=== PATIENT | male | born 1965 | race Two or more races ===

== ENCOUNTER 2017-05-05 17:51 | Emergency (ER) | payer BC ==
[~2017-05-05] VITALS: Ht 182.9 cm; Wt 113.4 kg
[2017-05-05 17:55] VITALS: Ht 182.9 cm; Wt 113.4 kg
[2017-05-06 00:54] VITALS: BP 137/92
== END 2017-05-06 01:30 | disposition home or self-care (01) ==
LOC: ED 17:51
DX: M54.9 Dorsalgia, unspecified (principal); S80.12XA Contusion of left lower leg, initial encounter; I10 Essential (primary) hypertension; V43.52XA Car driver injured in collision with other type car in traffic accident, initial encounter; Y93.I9 Activity, other involving external motion; Y92.411 Interstate highway as the place of occurrence of the external cause; Y99.8 Other external cause status
CPT/HCPCS: 72072; 90715